=== PATIENT | male | born 1975 | race Caucasian/White ===

== ENCOUNTER 2022-07-05 09:19 | Emergency (ER) | payer MEDICARE, MEDICAID ==
[~2022-07-05] VITALS: Ht 167.6 cm; Wt 90.0 kg
[2022-07-05 12:04] VITALS: BP 124/87
== END 2022-07-05 13:07 | disposition left against medical advice (07) ==
LOC: ER 09:19
DX: F15.10 Other stimulant abuse, uncomplicated (principal); F31.9 Bipolar disorder, unspecified
CPT/HCPCS: 99283

== ENCOUNTER 2022-07-05 12:41 | Emergency (ER) | payer MEDICARE, MEDICAID ==
[~2022-07-05] VITALS: Ht 172.7 cm; Wt 86.0 kg
[2022-07-05 12:43] VITALS: BP 146/74
== END 2022-07-05 18:58 | disposition left against medical advice (07) ==
LOC: ER 12:41
DX: Z53.21 Procedure and treatment not carried out due to patient leaving prior to being seen by health care provider (principal)